=== PATIENT | male | born 1940 | race Caucasian/White ===

== ENCOUNTER → 2016-10-18 | Outpatient (CLI) | payer OTHER | LOC: CIMAGING 12:07 | PROVIDERS: ATTEND Family Medicine | DX: J98.11 Atelectasis (principal); I51.7 Cardiomegaly; J45.909 Unspecified asthma, uncomplicated | CPT/HCPCS: 71020-PO ==

== ENCOUNTER 2016-12-27 11:00 | Emergency (ER) | payer OTHER ==
[2016-12-27 11:17] VITALS: TEMP 97.7
--- NOTE | 2016-12-27 11:34 | EDPHY ---
H & P Stated Complaint: dizzy episodes with syncope 1 week ago, continues with dizziness Time Seen by Provider: 12/27/16 11:06 HPI/ROS: CHIEF COMPLAINT: Do not feel well HISTORY OF PRESENT ILLNESS: Patient is a 75-year-old man who comes to the emergency department complaining that he does not feel well. He states that on Sunday about 5 days ago he had a syncopal event in his yard while he was working. He hit his head and has a small abrasion to his left forehead. He states that since that time he has not felt well. When asked to define this he states that he has felt fatigued and nauseous and anxious about falling again. He has a longstanding history of vertigo. He has been seen by ENT and Cardiology in the past and takes meclizine P.r.n. and had a pacemaker placed. He has only fainted once before however. He fainted several years ago after going to the bathroom. He states that no one could find the reason for his dizziness. He states that Fridays episode was somewhat different though. He did not feel a spinning sensation but more of a sensation of lightheadedness. He denies chest pain or shortness of breath. He denies palpitations. He states that his blood sugars have been difficult to control lately. He states that he is afraid to do anything because his he is worried that he might faint again. He has not had a fever or cough. His O2 sats at triage 88 but he denies any sensation of shortness of breath. He states he wears oxygen at night but not during the day. REVIEW OF SYSTEMS: Constitutional: See HPI EENTM: denies: blurred vision, double vision, nose congestion Respiratory: denies: cough, shortness of breath Cardiac: denies: chest pain, irregular heart rate, lightheadedness, palpitations Gastrointestinal/Abdominal: denies: abdominal pain, diarrhea, nausea, vomiting, blood streaked stools Genitourinary: denies: dysuria, frequency, hematuria, pain Musculoskeletal: denies: joint pain, muscle pain Skin: abrasions Neurological: see HPI, mild headache denies: numbness, paresthesia, tingling, dizziness, weakness Hematologic/Lymphatic: denies: blood clots, easy bleeding, easy bruising Immunologic/allergic: denies: HIV/AIDS, transplant EXAM: GENERAL: Well-appearing, well-nourished and in no acute distress. HEAD: Atraumatic, normocephalic. EYES: Pupils equal round and reactive to light, extraocular movements intact, sclera anicteric, conjunctiva are normal. ENT: TMs normal, nares patent, oropharynx clear without exudates. Moist mucous membranes. NECK: Normal range of motion, supple without lymphadenopathy or JVD. LUNGS: Breath sounds clear to auscultation bilaterally and equal. No wheezes rales or rhonchi. HEART: Regular rate and rhythm without murmurs, rubs or gallops. ABDOMEN: Soft, nontender, normoactive bowel sounds. No guarding, no rebound. No masses appreciated. BACK: No CVA tenderness, no spinal tenderness, step-offs or deformities EXTREMITIES: Normal range of motion, no pitting or edema. No clubbing or cyanosis. NEUROLOGICAL: Cranial nerves II through XII grossly intact. Normal speech, normal gait. 5/5 strength, normal movement in all extremities, normal sensation PSYCH: Normal mood, normal affect. SKIN: Small abrasion left forehead, healing Source: Patient Exam Limitations: No limitations - Medical/Surgical History Hx Asthma: No Hx Chronic Respiratory Disease: No Hx Diabetes: No Hx Cardiac Disease: Yes Hx Renal Disease: No Hx Cirrhosis: No Hx Alcoholism: No Hx HIV/AIDS: No Hx Splenectomy or Spleen Trauma: No Other PMH: HYPERTENSION. HIGH CHOLESTEROL. HIP REPLACEMENT. PACEMAKER. ORTHO KNEE SURGERY. type 2 diabetes, hypertension - Family History Significant Family History: No pertinent family hx - Social History Smoking Status: Former smoker Alcohol Use: Sober Drug Use: None Constitutional: Initial Vital Signs Temperature (C) 36.5 C 12/27/16 11:05 Heart Rate 72 12/27/16 11:05 Respiratory Rate 22 H 12/27/16 11:05 Blood Pressure 151/85 H 12/27/16 11:05 O2 Sat (%) 87 L 12/27/16 11:05 O2 Delivery Mode Room Air O2 (L/minute) 2 Allergies/Adverse Reactions: Penicillins Allergy (Verified 12/27/16 11:14) Home Medications: Medication Instructions Recorded Aspirin 81mg (OTC) 11/09/13 Atenolol 11/09/13 Calcium 11/09/13 Glucosamine 11/09/13 Lisinopril 11/09/13 Oxybutynin 11/09/13 Simvastatin 11/09/13 Vitamin B12 (OTC) 11/09/13 Amlodipine Besylate 11/17/14 Cephalexin [Keflex (RX)] 500 mg PO QID 7 Days 11/17/14 Hydrocodone/APAP 5/325 [[place]aud 1 tab PO Q4 PRN #15 tab 11/17/14 5/325] Meclizine HCl 11/17/14 Ondansetron HCl 11/17/14 Preservision Softgel 11/17/14 Probiotic 11/17/14 Medical Decision Making - Diagnostics EKG Interpretation: An EKG obtained and was read and documented in trace view. Please see trace view for full reading and report. Atrial paced complexes, first-degree block Imaging Results: Imaging Impressions Chest X-Ray 12/27/16 11:28 Impression: 1. Stable hyperexpansion suggests airways disease. 2. Persistent borderline cardiac enlargement without pulmonary edema. 3. See above report for additional findings. Head CT 12/27/16 11:29 Impression: There is no acute abnormality identified on this unenhanced CT evaluation. The patient is not a candidate for MR imaging because of the presence of a pacemaker. Findings were discussed with SHABBIR AMAYA MD at 12:07 PM, on 12/27/2016. Imaging: Discussed imaging studies w/ teacher physically impaired Radiologist, I viewed and interpreted images myself ED Course/Re-evaluation: The patient's workup is unremarkable. His baseline saturation in the room appears to be between 88 and 90%. He denies shortness of breath. He is supposed to wear oxygen at home. I offered admission for further workup and evaluation. He and his declined. They state that they have a appointment with their Dr. Hannah Medina in a couple of hours. I opined that his mild baseline hypoxia may be causing some of his fainting or dizziness spells. He might do better with oxygen in the daytime as well. Especially while working or ambulating. He and his understand and agree with this plan. They will discuss with Dr. Medina. They primarily came here today to have a head CT done and they are relieved with results. His anxiety is relieved with this news. Otherwise his symptoms are essentially at his baseline. Differential Diagnosis: Partial list of the Differential diagnosis considered include but were not limited to; COPD, hypoxia, arrhythmia, vertigo and although unlikely based on the history and physical exam, I also considered PE, pneumonia, acute coronary disease, tumor, seizure. I discussed these differential diagnoses and the plan with the patient as well as the usual and expected course. The patient understands that the diagnosis is provisional and that in medicine we are not always correct and that further workup is often warranted. Usual and customary warnings were given. All of the patient's questions were answered. The patient was instructed to return to the emergency department should the symptoms at all worsen or return, otherwise to followup with the physician as we discussed. - Data Points Laboratory Results: Laboratory Results 12/27/16 11:35 12/27/16 11:35 12/27/16 12/27/16 12/27/16 11:35 11:35 11:35 WBC 12.10 10^3/uL H 10^3/uL (3.80-9.50) RBC 4.92 10^6/uL 10^6/uL (4.40-6.38) Hgb 15.1 g/dL g/dL (13.7-17.5) Hct 45.5 % % (40.0-51.0) MCV 92.5 fL fL (81.5-99.8) MCH 30.7 pg pg (27.9-34.1) MCHC 33.2 g/dL g/dL (32.4-36.7) RDW 14.0 % % (11.5-15.2) Plt Count 120 10^3/uL L 10^3/uL (150-400) MPV 13.5 fL H fL (8.7-11.7) Neut % (Auto) 78.0 % H % (39.3-74.2) Lymph % (Auto) 14.6 % L % (15.0-45.0) [place] % (Auto) 6.4 % % (4.5-13.0) Eos % (Auto) 0.3 % L % (0.6-7.6) Baso % (Auto) 0.2 % L % (0.3-1.7) Nucleat RBC Rel Count 0.0 % % (0.0-0.2) Absolute Neuts (auto) 9.43 10^3/uL H 10^3/uL (1.70-6.50) Absolute Lymphs (auto) 1.77 10^3/uL 10^3/uL (1.00-3.00) Absolute Monos (auto) 0.77 10^3/uL 10^3/uL (0.30-0.80) Absolute Eos (auto) 0.04 10^3/uL 10^3/uL (0.03-0.40) Absolute Basos (auto) 0.03 10^3/uL 10^3/uL (0.02-0.10) Absolute Nucleated RBC 0.00 10^3/uL 10^3/uL (0-0.01) Immature Gran % 0.5 % % (0.0-1.1) Immature Gran # 0.06 10^3/uL 10^3/uL (0.00-0.10) D-Dimer 0.50 ug/mLFEU ug/mLFEU (0.00-0.50) Sodium 139 mEq/L mEq/L (134-144) Potassium 4.4 mEq/L mEq/L (3.5-5.2) Chloride 95 mEq/L L mEq/L (97-110) Carbon Dioxide 28 mEq/l mEq/l (22-31) Anion Gap 16 mEq/L mEq/L (8-16) BUN 13 mg/dL mg/dL (7-23) Creatinine 0.8 mg/dL mg/dL (0.7-1.3) Estimated GFR > 60 Glucose 142 mg/dL H mg/dL (70-100) Calcium 9.2 mg/dL mg/dL (8.5-10.4) Troponin I < 0.012 ng/mL ng/mL (0-0.034) NT-Pro-B Natriuret Pep 94 pg/mL pg/mL (0-450) Departure - Departure Disposition: Home, Routine, Self-Care Clinical Impression: Hypoxia Syncope Qualifiers: Syncope type: unspecified Qualified Code(s): R55 - Syncope and collapse Condition: Fair Instructions: Syncope (ED), Hypoxia (ED) Referrals: Hannah Medina MD [Primary Care Provider] - As per Instructions
[2016-12-27 11:45] LABS: % IMMATURE GRANULYOCYTES 0.5 % (0.0-1.1); ABSOLUTE IMMATURE GRANULOCYTES 0.06 10^3/uL (0.00-0.10); ADD DIFF? NO; ADD MORPH? NO; ADD SCAN? NO; ATYPICAL LYMPHOCYTE FLAG 0 (0-99); FRAGMENT RBC FLAG 0 (0-99); HEMATOCRIT 45.5 % (40.0-51.0); HEMOGLOBIN 15.1 g/dL (13.7-17.5); LEFT SHIFT FLG 0 (0-99); LIPEMIA HEMOLYSIS FLAG 80 (0-99); MEAN CELL HEMOGLOBIN 30.7 pg (27.9-34.1); MEAN CELL HEMOGLOBIN CONCENTR. 33.2 g/dL (32.4-36.7); MEAN CELL VOLUME 92.5 fL (81.5-99.8); MEAN PLATELET VOLUME 13.5 fL (8.7-11.7); PLATELET CLUMPS FLAG 0 (0-99); PLATELET COUNT 120 10^3/uL (150-400); RED BLOOD CELL COUNT 4.92 10^6/uL (4.40-6.38)
[2016-12-27 12:02] LABS: ANION GAP 16 mEq/L (8-16); CALCIUM 9.2 mg/dL (8.5-10.4); CARBON DIOXIDE 28 mEq/l (22-31); CHLORIDE 95 mEq/L (97-110); CREATININE 0.8 mg/dL (0.7-1.3); GLOMERULAR FILTRATION RATE > 60; GLUCOSE 142 mg/dL (70-100); POTASSIUM 4.4 mEq/L (3.5-5.2); SODIUM 139 mEq/L (134-144)
[2016-12-27 12:14] LABS: TROPONIN I < 0.012 ng/mL (0-0.034)
[2016-12-27 13:07] VITALS: BP 117/75; PULSE 71; RESP 20; O2SAT 92
--- NOTE | 2016-12-27 16:27 | CPEKG ---
Heart Rate: 73 RR Interval: 822 P-R Interval: 208 QRSD Interval: 84 QT Interval: 380 QTC Interval: 419 P [place]: 0 QRS [place]: 34 T Wave [place]: -72 EKG Severity - ABNORMAL ECG - EKG Impression: ATRIAL-PACED COMPLEXES EKG Impression: BORDERLINE R WAVE PROGRESSION, ANTERIOR LEADS EKG Impression: REPOL ABNRM, PROBABLE ISCHEMIA, DIFFUSE LEADS EKG Impression: Similar to previous, ventricular pacing not present Electronically Signed For: Juan Gagnon 27-Dec-2016 16:27:35
== END 2016-12-27 13:22 | disposition home or self-care (01) ==
LOC: CED 11:00
DX: R55 Syncope and collapse (principal); R09.02 Hypoxemia; I10 Essential (primary) hypertension; E11.9 Type 2 diabetes mellitus without complications; Z79.82 Long term (current) use of aspirin; Z87.891 Personal history of nicotine dependence; Z95.0 Presence of cardiac pacemaker
CPT/HCPCS: 70450-PO; 71020-PO; 80048-PO; 83880-PO; 84484-PO; 85025-PO; 85378-PO

== ENCOUNTER → 2017-05-25 | Outpatient (CLI) | payer OTHER | LOC: FIMAGING 07:53 | PROVIDERS: ATTEND Internal Medicine Gastroenterology | DX: K21.9 Gastro-esophageal reflux disease without esophagitis (principal); K22.8 Other specified diseases of esophagus; K57.10 Diverticulosis of small intestine without perforation or abscess without bleeding ==

== ENCOUNTER → 2017-08-10 | Outpatient (CLI) | payer OTHER | LOC: CIMAGING 14:29 | PROVIDERS: ATTEND Family Medicine | DX: J98.09 Other diseases of bronchus, not elsewhere classified (principal) | CPT/HCPCS: 71046-PO ==

== ENCOUNTER → 2018-09-19 | Outpatient (CLI) | payer OTHER | LOC: CIMAGING 13:02 | PROVIDERS: ATTEND Family Medicine | DX: J40 Bronchitis, not specified as acute or chronic (principal); J44.9 Chronic obstructive pulmonary disease, unspecified; J61 Pneumoconiosis due to asbestos and other mineral fibers; I77.1 Stricture of artery | CPT/HCPCS: 71046-PO ==